=== PATIENT | male | born 1960 | race Two or more races ===

== ENCOUNTER 2021-05-11 20:26 | Emergency (ER) | payer MEDICARE ==
[~2021-05-11] VITALS: Ht 170.2 cm; Wt 73.0 kg
[2021-05-11] MEDS ORDERED: IPRATROPIUM BROMIDE (0.02%) 0.5MG/2.5ML NEB HHN STA (21:47)
[2021-05-11] MEDS ORDERED: METHYLPREDNISOLONE SOD SUCC 125 MG/2 ML VIAL IV STA (21:47)
[2021-05-11 21:57] LABS: BASOPHILS % 0.9 % (0.0-2.0); EOSINOPHILS % 2.3 % (0.0-5.0); HEMATOCRIT. 45.7 % (42.0-52.0); HEMOGLOBIN. 15.4 g/dL (14.0-18.0); LYMPHOCYTES % 28.7 % (20.0-50.0); MEAN CORPUSCULAR HEMOGLOBIN 30.9 pg (28.0-32.0); MEAN CORPUSCULAR VOLUME 91.8 fL (80.0-94.0); MEAN PLATELET VOLUME 8.3 fl (7.4-10.4); MONOCYTES % 10.9 % (2.0-8.0); NEUTROPHILS % 57.2 % (40.0-76.0); PLATELET 223 x1000/uL (130-400); RED BLOOD CELL COUNT 4.98 mill/uL (4.7-6.1); RED CELL DISTRIBUTION WIDTH 15.1 % (11.6-14.6)
[2021-05-11 22:02] LABS: CHLORIDE 108 mEq/L (98-107)
[2021-05-11] MEDS: ALBUTEROL (0.083%) 2.5MG/3ML NEB HHN SCH ×3 (22:02→23:58)
[2021-05-11] MEDS ORDERED: P20 MT (22:36)
[2021-05-11] MEDS ORDERED: ALBU6.7H9 INH (22:36)
[2021-05-11 23:07] VITALS: BP 141/60
== END 2021-05-12 | disposition home or self-care (01) ==
LOC: ER 20:26
DX: J44.1 Chronic obstructive pulmonary disease with (acute) exacerbation (principal); F17.210 Nicotine dependence, cigarettes, uncomplicated
CPT/HCPCS: 36415; 71045; 80053; 85025; 93005; 94640; 96374; 99284; J2930